=== PATIENT | female | born 1990 ===

== ENCOUNTER → 2019-02-02 | Outpatient (CLI) | payer BC ==
[2019-02-05 06:08] LABS: CHLAMYDIA TRACHOMATIS, NAA Negative (Negative); NEISSERIA GONORRHOEAE, NAA Negative (Negative)
== END | disposition home or self-care (01) ==
LOC: LAB SHORT 13:25 → LAB EV 13:25 → LAB 13:25
PROVIDERS: Physician Assistant
DX: R10.2 Pelvic and perineal pain (principal)
CPT/HCPCS: 87070; 87205; 87491; 87591; G0145